=== PATIENT | female | born 1990 | race Caucasian/White ===

== ENCOUNTER 2016-10-24 12:01 | Emergency (ER) | payer OTHER ==
[2016-10-24 12:13] VITALS: BMI 47.5
[2016-10-24 12:17] VITALS: TEMP 98.8; O2SAT 97
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
[2016-10-24 13:19] VITALS: BP 130/74; PULSE 79; RESP 18
--- NOTE | 2016-10-24 14:25 | RAD ---
PROCEDURE: Cervical Spine Radiographs. HISTORY: Pain. COMPARISON: None. FINDINGS: BONES: Alignment maintained. No fracture. Dens Intact. DISC SPACES: Normal. SOFT TISSUES: Normal. No prevertebral soft tissue swelling. OTHER FINDINGS: None. IMPRESSION: Normal cervical spine radiographs
--- NOTE | 2016-10-24 14:25 | RAD ---
PROCEDURE: Radiographs of the Lumbar Spine. HISTORY: t COMPARISON: No prior. FINDINGS: BONES: Normal alignment. No listhesis. No fracture. DISC SPACES: Unremarkable. OTHER FINDINGS: None. IMPRESSION: Unremarkable radiographs of the lumbar spine.
== END 2016-10-24 15:26 | disposition home or self-care (01) ==
LOC: ED 12:01
DX: S16.1XXA Strain of muscle, fascia and tendon at neck level, initial encounter (principal); S39.012A Strain of muscle, fascia and tendon of lower back, initial encounter; V49.49XA Driver injured in collision with other motor vehicles in traffic accident, initial encounter; Y92.488 Other paved roadways as the place of occurrence of the external cause